=== PATIENT | male | born 1950 | race Caucasian/White ===

== ENCOUNTER 2017-01-30 11:32 | Emergency (ER) | payer MEDICARE ==
[~2017-01-30] VITALS: Ht 185.4 cm; Wt 108.0 kg
[~2017-01-30 11:32] MED LIST: ALPR.25 PO; ASPI81CH5 PO; ATOR40TA PO; BUME1TAB; COZA100T PO; GLIP10TA6 PO; HUMULIN; LANTUSP SQ; LISI40TA PO; METF850T PO; METO50TA PO; NITR0.4S SL; OMEP20TA39 PO; PIOG30 PO; POTA-267 PO; PROC90TA PO; ZOLP10TA3 PO
[2017-01-30 11:38] VITALS: BP 140/68; PULSE 67; RESP 16; TEMP 97.7; O2SAT 97
[2017-01-30] MEDS ORDERED: ALPR0.5T3 PO (11:57)
[2017-01-30] MEDS ORDERED: ASPI-516 CHEW (11:57)
[2017-01-30] MEDS ORDERED: ATOR40TA16 PO (11:58)
[2017-01-30] MEDS ORDERED: GLIP10TA6 PO (11:58)
[2017-01-30] MEDS ORDERED: BUME1TAB PO (11:58)
[2017-01-30] MEDS ORDERED: LISI40TA PO (11:59)
[2017-01-30] MEDS ORDERED: LOSA100T PO (11:59)
[2017-01-30] MEDS ORDERED: NIFE1TAB PO (11:59)
[2017-01-30] MEDS ORDERED: PIOG1TAB39 PO (12:00)
[2017-01-30] MEDS ORDERED: POTA10TA2 PO (12:01)
[2017-01-30] MEDS ORDERED: METO50TA PO (12:01)
[2017-01-30] MEDS ORDERED: ZOLP10TA3 PO (12:02)
[2017-01-30] MEDS ORDERED: LANTUS2P SQ (12:03)
[2017-01-30] MEDS ORDERED: INSU100V2 SQ (12:03)
[2017-01-30] MEDS ORDERED: SODIUM CHLOR 0.9% 1000 ML INJ 1,000 ML IV SCH (12:16)
--- NOTE | 2017-01-30 12:21 | PD ---
HPI Chief Complaint: Abdominal Pain Time Seen by Provider: 12:16 Travel History International Travel<30 days: No Contact w/Intl Traveler<30days: No Traveled to known affect area: No History of Present Illness HPI This 66-year-old male is complaining of nausea and vomiting. He feels that he has been sick since Monday. His abdomen has been distended. He has had no appetite and when he does try to eat he gets very nauseated and has vomited a couple of times. He has a history of coronary bypass surgery in 2002. He had colon cancer operated on in 1999. He has not had any trouble with the colon since then. He did not have any chemotherapy. PFSH Past Medical History Asthma: Yes (SEASONAL ALLERGIES ) Autoimmune Disease: No Anxiety: Yes Heart Rhythm Problems: No Cancer: Yes (COLON CANCER, SKIN CANCER -EAR ) Cardiac Catheterization: Yes (1984) Cardiovascular Problems: Yes High Cholesterol: Yes Chemotherapy: No Chest Pain: Yes Congestive Heart Failure: Yes Diabetes: Yes Patient Takes Glucophage: No Diminished Hearing: No Endocrine: Yes GERD: Yes (ON PRILOSEC FOR GERD ) Genitourinary: Yes (WHEN A CHILD ) Hypertension: Yes Immune Disorder: No Musculoskeletal: No Neurologic: No Psychiatric: Yes Reproductive: No Respiratory: Yes Immunizations Current: No Myocardial Infarction: Yes ( ) Radiation Therapy: No Tetanus Vaccination: Unknown Influenza Vaccination: No Past Surgical History Cardiac Surgery: Yes (2002 3 BYPASS, CATHS X2 ) Coronary Artery Bypass Graft: Yes (2002 TRIPLE) Genitourinary Surgery: Yes (COLON CA 2000 LOWER RESECTION) Social History Alcohol Use: No Tobacco Use: No Substance Use: No Allergies-Medications (Allergen,Severity, Reaction): Coded Allergies: potassium (Unverified Allergy, Intermediate, ITCHING/FLUSHING/BURNING, ) potassium chloride (Unverified Allergy, Intermediate, ITCHING/FLUSHING/ BURNING, 10/11/16) polyethylene glycol 3350 (Unverified Allergy, Mild, N/V, 10/11/16) potassium chloride (Unverified Allergy, Mild, N/V, 10/11/16) sodium (Unverified Allergy, Mild, N/V, 10/11/16) sodium bicarbonate (Unverified Allergy, Mild, N/V, 10/11/16) sodium chloride (Unverified Allergy, Mild, N/V, 10/11/16) sodium sulfate (Unverified Allergy, Mild, N/V, 10/11/16) Reported Meds & Prescriptions Reported Meds & Active Scripts Active Reported Humulin R Inj (Insulin Human Regular) 1,000 Unit/10 Ml Vial 2-10 Units SQ TIDAC PRN IMPORTANT TO EAT A MEAL WITHIN 30-60 MINUTES OF DOSING Lantus Inj (Insulin Glargine) 1,000 Unit/10 Ml Vial 10 Units SQ HS Zolpidem (Zolpidem Tartrate) 10 Mg Tab 10 Mg PO HS PRN Metoprolol Tartrate 50 Mg Tab 50 Mg PO BID Potassium Chloride ER (Potassium Chloride) 10 Meq Tab 10 Meq PO QID Pioglitazone-Metformin 15-850 mg Tab 1 Tab PO DAILY Nifedipine ER 24 HR (Nifedipine) 90 Mg Tab 90 Mg PO DAILY Losartan (Losartan Potassium) 100 Mg Tab 100 Mg PO DAILY Lisinopril 40 Mg Tab 40 Mg PO DAILY Glipizide 10 Mg Tab 10 Mg PO BIDAC Take 30 minutes before a meal Bumetanide 1 Mg Tab 1 Mg PO BID Atorvastatin (Atorvastatin Calcium) 40 Mg Tab 40 Mg PO HS Alprazolam 0.5 Mg Tab 0.5 Mg PO Q8H PRN Aspirin 81 Mg Chew 81 Mg CHEW ONCE Review of Systems General / Constitutional: No: Fever, Chills Eyes: No: Diploplia, Blurred Vision HENT: No: Headaches, Vertigo Cardiovascular: No: Chest Pain or Discomfort, Palpitations Respiratory: No: Cough, Shortness of Breath Gastrointestinal: Positive: Nausea, Vomiting, Abdominal Pain Skin: No Rash, No Itching Neurologic: Positive: Weakness, Dizziness Hematologic/Lymphatic: No: Easy Bruising Physical Exam Narrative GENERAL: Well-developed male SKIN: Focused skin assessment warm/dry. HEAD: Atraumatic. Normocephalic. EYES: Pupils equal and round. No scleral icterus. No injection or drainage. ENT: No nasal bleeding or discharge. Mucous membranes pink and moist. NECK: Trachea midline. No JVD. CARDIOVASCULAR: Regular rate and rhythm. No murmur appreciated. RESPIRATORY: No accessory muscle use. Clear to auscultation. Breath sounds equal bilaterally. GASTROINTESTINAL: Abdomen has some distention. There is mild diffuse tenderness without guarding or rigidity. Bowel sounds are diminished MUSCULOSKELETAL: No obvious deformities. No clubbing. No cyanosis. No edema. NEUROLOGICAL: Awake and alert. No obvious cranial nerve deficits. Motor grossly within normal limits. Normal speech. PSYCHIATRIC: Appropriate mood and affect; insight and judgment normal. Data Data Last Documented VS Vital Signs Date Time Temp Pulse Resp B/P (MAP) Pulse Ox O2 Delivery O2 Flow Rate FiO2 01/30/17 14:07 62 140/67 (91) 96 01/30/17 11:38 97.7 16 Orders Orders Complete Blood Count With Diff (01/30/17 12:16) Comprehensive Metabolic Panel (01/30/17 12:16) Lipase (01/30/17 12:16) Urinalysis - C+S If Indicated (01/30/17 12:16) Ct Abd/Pel W Iv Contrast(Rout) (01/30/17 12:16) Iv Access Insert/Monitor (01/30/17 12:16) Ecg Monitoring (01/30/17 12:16) Oximetry (01/30/17 12:16) Ondansetron Inj (Zofran Inj) (01/30/17 12:30) Sodium Chlor 0.9% 1000 Ml Inj (Ns 1000 M (01/30/17 12:16) Sodium Chloride 0.9% Flush (Ns Flush) (01/30/17 12:30) Iohexol 350 Inj (Omnipaque 350 Inj) (01/30/17 13:38) Labs Laboratory Tests Test 01/30/17 12:26 01/30/17 13:51 White Blood Count 9.7 TH/MM3 Red Blood Count 4.48 MIL/MM3 Hemoglobin 12.4 GM/DL Hematocrit 37.6 % Mean Corpuscular Volume 83.9 FL Mean Corpuscular Hemoglobin 27.8 PG Mean Corpuscular Hemoglobin Concent 33.1 % Red Cell Distribution Width 13.1 % Platelet Count 245 TH/MM3 Mean Platelet Volume 9.1 FL Neutrophils (%) (Auto) 68.6 % Lymphocytes (%) (Auto) 22.0 % Monocytes (%) (Auto) 7.1 % Eosinophils (%) (Auto) 1.4 % Basophils (%) (Auto) 0.9 % Neutrophils # (Auto) 6.7 TH/MM3 Lymphocytes # (Auto) 2.1 TH/MM3 Monocytes # (Auto) 0.7 TH/MM3 Eosinophils # (Auto) 0.1 TH/MM3 Basophils # (Auto) 0.1 TH/MM3 CBC Comment AUTO DIFF Differential Comment AUTO DIFF CONFIRMED Blood Urea Nitrogen 20 MG/DL Creatinine 1.60 MG/DL Random Glucose 205 MG/DL Total Protein 7.9 GM/DL Albumin 3.6 GM/DL Calcium Level 9.1 MG/DL Alkaline Phosphatase 79 U/L Aspartate Amino Transf (AST/SGOT) 18 U/L Alanine Aminotransferase (ALT/SGPT) 25 U/L Total Bilirubin 0.5 MG/DL Sodium Level 133 MEQ/L Potassium Level 3.8 MEQ/L Chloride Level 97 MEQ/L Carbon Dioxide Level 25.7 MEQ/L Anion Gap 10 MEQ/L Estimat Glomerular Filtration Rate 43 ML/MIN Lipase 111 U/L Urine Color YELLOW Urine Turbidity CLEAR Urine pH 6.0 Urine Specific [place] 1.015 Urine Protein 100 mg/dL Urine Glucose (UA) NEG mg/dL Urine Ketones NEG mg/dL Urine Occult Blood TRACE Urine Nitrite NEG Urine Bilirubin NEG Urine Leukocyte Esterase NEG Urine RBC 0-3 /hpf Urine Squamous Epithelial Cells 0-5 /hpf Microscopic Urinalysis Comment CULT NOT INDICATED MDM Medical Decision Making Medical Screen Exam Complete: Yes Emergency Medical Condition: Yes Medical Record Reviewed: Yes Differential Diagnosis Differential includes nonspecific abdominal pain, cholelithiasis cholecystitis, bowel obstruction Narrative Course CT is negative for bowel obstruction. There is a large gallstone. Inflammation. White count is normal as are liver function tests. Patient is stable for discharge oh prescribe some Zofran in addition he has been out of his Xanax for a few days and this may be contributing to his malaise Diagnosis Primary Impression: Nonspecific abdominal pain Scripts Ondansetron Odt (Zofran Odt) 4 Mg Tab 4 MG SL Q8HR Y for Nausea/Vomiting, #12 TAB 0 Refills Prov: José Miguel Luque MD 01/30/17 Alprazolam (Xanax) 0.25 Mg Tab 0.25 MG PO Q8H Y for ANXIETY, #6 TAB 0 Refills Prov: José Miguel Luque MD 01/30/17 Disposition: 01 DISCHARGE HOME Condition: Stable José Miguel Luque MD Jan 30, 2017 12:21
[2017-01-30] MEDS ORDERED: SODIUM CHLORIDE 0.9% FLUSH 10 ML FLUSH IV FLUSH PRN (12:30)
[2017-01-30] MEDS ORDERED: ONDANSETRON HCL 4 MG/2 ML VIAL IVP ONE (12:30)
[2017-01-30 12:37] LABS: AUTOMATED NEUTROPHIL # 6.7 TH/MM3 (1.8-7.7); BASOPHIL # 0.1 TH/MM3 (0-0.2); BASOPHIL % 0.9 % (0.0-2.0); EOSINOPHIL # 0.1 TH/MM3 (0-0.4); EOSINOPHIL % 1.4 % (0.0-4.0); HEMATOCRIT 37.6 % (39.0-51.0); LYMPHOCYTE # 2.1 TH/MM3 (1.0-4.8); MEAN CELL VOLUME 83.9 FL (80.0-100.0); MEAN CORPUSCULAR HEMOGLOBIN 27.8 PG (27.0-34.0); MEAN CORPUSCULAR HGB CONC 33.1 % (32.0-36.0); MONO % 7.1 % (0.0-8.0); NEUT % 68.6 % (16.0-70.0); PLATELET COUNT 245 TH/MM3 (150-450); RED BLOOD COUNT 4.48 MIL/MM3 (4.50-5.90); RED CELL DISTRIBUTION WIDTH 13.1 % (11.6-17.2); WHITE BLOOD COUNT 9.7 TH/MM3 (4.0-11.0)
[2017-01-30 12:38] VITALS: O2SAT 99
[2017-01-30 12:38] LABS: HEMO FLAGS AUTO DIFF
[2017-01-30 12:55] LABS: SCAN/DIFF AUTO DIFF CONFIRMED
[2017-01-30 13:06] LABS: CHLORIDE 97 MEQ/L (98-107); POTASSIUM 3.8 MEQ/L (3.5-5.1); SODIUM (NA) 133 MEQ/L (136-145)
[2017-01-30 13:10] LABS: ANION GAP 10 MEQ/L (5-15); BICARBONATE 25.7 MEQ/L (21.0-32.0); BLOOD UREA NITROGEN 20 MG/DL (7-18)
[2017-01-30 13:12] LABS: ALT (GPT) 25 U/L (12-78)
[2017-01-30 13:13] LABS: AST (GOT) 18 U/L (15-37); GLOMERULAR FILTRATION RATE 43 ML/MIN (>89)
[2017-01-30 13:14] LABS: TOTAL BILIRUBIN ADULT 0.5 MG/DL (0.2-1.0)
[2017-01-30 13:15] LABS: ALKALINE PHOSPHATASE 79 U/L (45-117)
[2017-01-30] MEDS ORDERED: IOHEXOL 350 MG/ML 10 ML VIAL (for RAD DIAG) IVCONTRAST ONE (13:38)
--- NOTE | 2017-01-30 13:59 | RADRPT ---
EXAM DATE/TIME: 01/30/2017 13:31 [facility] COMPARISON: No previous studies available for comparison. INDICATIONS : Abdominal distention with nausea and vomiting. IV CONTRAST: 75 cc Omnipaque 350 (iohexol) IV ORAL CONTRAST: No oral contrast ingested. RADIATION DOSE: 24.57 CTDIvol (mGy) MEDICAL HISTORY : Cardiovascular disease. Carcinoma, colon. Gastroesophageal reflux disease.Diabetes. Hypertension. SURGICAL HISTORY : CABG Colon resection. ENCOUNTER: Initial ACUITY: 4 - 6 days PAIN SCALE: 3/10 LOCATION: abdomen TECHNIQUE: Volumetric scanning of the abdomen and pelvis was performed. Using automated exposure control and ad justment of the mA and/or kV according to patient size, radiation dose was kept as low as reasonably achievable to obtain optimal diagnostic quality images. DICOM format image data is available electro nically for review and comparison. FINDINGS: LOWER LUNGS: The visualized lower lungs are clear. LIVER: Normal size with segment 8 a low-density lesion measuring 11 mm. Hounsfield measurements are 9. No ot her liver lesion is identified. Hepatic vasculature is within normal limits. There is a single stone within the gallbladder. No gallbladder wall thickening or inflammation is present. There is no dilat ion of the biliary tree. SPLEEN: Normal size without lesion. Punctate calcifications are present. PANCREAS: There is a 10 mm low density cystic lesion in the pancreatic body. No duct dilatation or solid mass i s identified. KIDNEYS: Normal in size and shape. There is no mass, stone or hydronephrosis. There is an incidental 4 mm low density lesion in the right mid kidney that is too small to characterize. ADRENAL GLANDS: Within normal limits. VASCULAR: There is no aortic aneurysm. There is moderate to severe atherosclerotic disease. BOWEL/MESENTERY: The stomach, small bowel, and colon demonstrate no acute abnormality. There is no free intraperitone al air or fluid. Bowel staple line is present in the distal sigmoid colon. ABDOMINAL WALL: Within normal limits. RETROPERITONEUM: There is no lymphadenopathy. BLADDER: No wall thickening or mass. REPRODUCTIVE: Within normal limits. INGUINAL: There is no lymphadenopathy. There is a fat containing left inguinal hernia. MUSCULOSKELETAL: Very mild degenerative changes are present throughout the lumbar spine. Median sternotomy wires are p resent. CONCLUSION: 1. No acute abnormality is identified to explain the clinical symptoms. 2. There is a 10 mm cystic lesion in the pancreatic body. No solid mass or duct dilatation is identif ied. If no prior imaging studies are available to confirm longer term stability consider 6-12 month f [facility] pancreas protocol MRI or MRCP examination to confirm stability. 3. Nonacute findings include cholelithiasis and moderate atherosclerotic disease. Zach Guo MD on January 30, 2017 at 13:50 Board Certified Radiologist. This report was verified electronically.
[2017-01-30 14:07] VITALS: BP 140/67; PULSE 62; O2SAT 96
[2017-01-30 14:07] LABS: BLOOD, URINE TRACE (NEG); GLUCOSE,URINE NEG (NEG); KETONE, URINE NEG (NEG); NITRITE,URINE NEG (NEG)
[2017-01-30 14:11] LABS: URINE COLOR YELLOW (YELLW/STRAW)
[2017-01-30 14:15] LABS: COMMENT (UR) CULT NOT INDICATED; CULTURE IF INDICATED CULT NOT INDICATED; RBC, URINE 0-3 /hpf (0-3); SQUAMOUS EPITHELIAL CELL URINE 0-5 /hpf (0-5)
[2017-01-30] MEDS ORDERED: ALPR.25 PO (14:36)
[2017-01-30] MEDS ORDERED: ZOFR4TAB3 SL (14:36)
[2017-01-30 14:47] VITALS: BP 140/67
== END 2017-01-30 14:53 | disposition home or self-care (01) ==
LOC: PHED 11:32
DX: R10.9 Unspecified abdominal pain (principal); K21.9 Gastro-esophageal reflux disease without esophagitis; K80.20 Calculus of gallbladder without cholecystitis without obstruction; E11.9 Type 2 diabetes mellitus without complications; E78.00 Pure hypercholesterolemia, unspecified; I11.0 Hypertensive heart disease with heart failure; I50.9 Heart failure, unspecified; I25.2 Old myocardial infarction; Z79.4 Long term (current) use of insulin; Z79.899 Other long term (current) drug therapy; Z85.038 Personal history of other malignant neoplasm of large intestine
CPT/HCPCS: 74177; 80053; 81001; 83690; 85025; 96361; 96374; 99285; J2405; J7030; Q9967